=== PATIENT | female | born 1945 | race Caucasian/White ===

== ENCOUNTER 2017-04-24 21:41 | Observation (INO) | payer OTHER ==
[~2017-04-24] VITALS: Ht 160 cm; Wt 74.8 kg
[~2017-04-24 21:41] MED LIST: AMOX500T PO; ASPI81TA82 PO; CLON1 PO; FISH1000 PO; GREEPOW2 PO; MIRA1.5T3 PO; NORT25CA PO; OYST500T77 PO; SUPETAB30 PO; VITA400C28 PO; VITA400C70 PO
[2017-04-24 21:43] VITALS: BP 154/74; PULSE 88; RESP 16; TEMP 98.1; O2SAT 97
[2017-04-24 21:58] VITALS: BP 149/76; PULSE 79; RESP 16; O2SAT 98
[2017-04-24] MEDS ORDERED: OMEP20TA93 PO (22:05)
[2017-04-24] MEDS ORDERED: AMLO10TA2 PO (22:05)
[2017-04-24] MEDS ORDERED: TRIA1CAP6 PO (22:05)
[2017-04-24] MEDS ORDERED: NORT10CA PO (22:05)
[2017-04-24] MEDS ORDERED: ASPI-516 CHEW (22:05)
[2017-04-24] MEDS ORDERED: PRAM1TAB PO (22:05)
--- NOTE | 2017-04-24 22:38 | PD ---
HPI Chief Complaint: Abdominal Pain Time Seen by Provider: 22:34 Travel History International Travel<30 days: No Contact w/Intl Traveler<30days: No Traveled to known affect area: No History of Present Illness HPI The patient is a 71-year-old female that complains of pain in the bilateral lower quadrants, right greater than left since around 10 AM today. She does have nausea and vomiting without diarrhea. She denies any fever. There is no blood in the vomitus or stool. She has never had any abdominal surgery and still has her appendix and gallbladder. She denies any cough. She states the bumps in the road hurt her when she drove over here. She denies any dysuria, frequency or urgency or flank pain. Her pain level is a stabbing fullness have a type of pain, 8/10 in intensity. She has had a hysterectomy. PFSH Past Medical History Diminished Hearing: No Medical other: Yes (REFLUX, ARTHRITIS) ?: Not Past Surgical History Gynecologic Surgery: Yes (HYSTERECTOMY) Hysterectomy: Yes Oral Surgery: Yes (SINUS SX) Thoracic Surgery: Yes (BILAT. BREAST BX) Other Surgery: Yes Social History Alcohol Use: Yes (ON WEEKENDS) Tobacco Use: Yes (WEEKENDS) Substance Use: No Allergies-Medications (Allergen,Severity, Reaction): Coded Allergies: cortisone (Verified Allergy, Severe, HIVES, 04/24/17) Reported Meds & Prescriptions Reported Meds & Active Scripts Active Reported Aspirin 81 Mg Chew 81 Mg CHEW DAILY Nortriptyline (Nortriptyline HCl) 10 Mg Cap 10 Mg PO HS Pramipexole (Pramipexole Dihydrochloride) 1 Mg Tab 1 Mg PO DAILY Amlodipine (Amlodipine Besylate) 10 Mg Tab 10 Mg PO DAILY Omeprazole 20 Mg Tab 20 Mg PO DAILY Dyrenium (Triamterene) 50 Mg Cap 50 Mg PO DAILY Review of Systems Except as stated in HPI: all other systems reviewed are Neg Physical Exam Narrative GENERAL: The patient is alert, oriented 3 in moderate apparent distress with her bilateral lower quadrant pain. Her vital signs show blood pressure 149/76 but are otherwise normal. SKIN: Focused skin assessment warm/dry. HEAD: Atraumatic. Normocephalic. EYES: Pupils equal and round. No scleral icterus. No injection or drainage. ENT: No nasal bleeding or discharge. Mucous membranes pink and moist. NECK: Trachea midline. No JVD. CARDIOVASCULAR: Regular rate and rhythm. No murmur appreciated. RESPIRATORY: No accessory muscle use. Clear to auscultation. Breath sounds equal bilaterally. GASTROINTESTINAL: Abdomen soft, with tenderness to direct palpation in the bilateral lower quadrants, right side is more tender than the left., nondistended. Hepatic and splenic margins not palpable. Palpation of the left side produces some pain in the right side. No guarding or rebound is present. Alcaraz's sign is negative. MUSCULOSKELETAL: No obvious deformities. No clubbing. No cyanosis. No edema. NEUROLOGICAL: Awake and alert. No obvious cranial nerve deficits. Motor grossly within normal limits. Normal speech. PSYCHIATRIC: Appropriate mood and affect; insight and judgment normal. Data Data Last Documented VS Vital Signs Date Time Temp Pulse Resp B/P (MAP) Pulse Ox O2 Delivery O2 Flow Rate FiO2 04/24/17 23:50 82 18 122/74 (90) 99 Room Air 04/24/17 21:43 98.1 Orders Orders Complete Blood Count With Diff (04/24/17 22:25) Comprehensive Metabolic Panel (04/24/17 22:25) Urinalysis - C+S If Indicated (04/24/17 22:25) Ct Abd/Pel W Iv Contrast(Rout) (04/24/17 22:34) Lipase (04/24/17 22:25) Ns + Kcl 20 Meq Inj (Ns + Kcl 20 Meq Inj (04/24/17 23:30) Iohexol 350 Inj (Omnipaque 350 Inj) (04/24/17 23:42) Admit Order (Ed Use Only) (04/25/17 00:33) Piperacil-Tazo 3.375 Gm Premix (Zosyn 3. (04/25/17 00:45) Labs Laboratory Tests Test 04/24/17 22:25 White Blood Count 18.9 TH/MM3 Red Blood Count 5.09 MIL/MM3 Hemoglobin 14.6 GM/DL Hematocrit 43.2 % Mean Corpuscular Volume 84.9 FL Mean Corpuscular Hemoglobin 28.7 PG Mean Corpuscular Hemoglobin Concent 33.8 % Red Cell Distribution Width 13.2 % Platelet Count 249 TH/MM3 Mean Platelet Volume 8.8 FL Neutrophils (%) (Auto) 89.1 % Lymphocytes (%) (Auto) 7.1 % Monocytes (%) (Auto) 3.3 % Eosinophils (%) (Auto) 0.4 % Basophils (%) (Auto) 0.1 % Neutrophils # (Auto) 16.9 TH/MM3 Lymphocytes # (Auto) 1.3 TH/MM3 Monocytes # (Auto) 0.6 TH/MM3 Eosinophils # (Auto) 0.1 TH/MM3 Basophils # (Auto) 0.0 TH/MM3 CBC Comment DIFF FINAL Differential Comment Urine Color YELLOW Urine Turbidity CLEAR Urine pH 7.0 Urine Specific [place] 1.014 Urine Protein NEG mg/dL Urine Glucose (UA) NEG mg/dL Urine Ketones NEG mg/dL Urine Occult Blood SMALL Urine Nitrite NEG Urine Bilirubin NEG Urine Leukocyte Esterase NEG Urine RBC 4-9 /hpf Urine WBC 3-5 /hpf Urine Squamous Epithelial Cells 0-5 /hpf Urine Amorphous Sediment FEW Urine Mucus OCC /lpf Microscopic Urinalysis Comment CULT NOT INDICATED Blood Urea Nitrogen 11 MG/DL Creatinine 0.95 MG/DL Random Glucose 149 MG/DL Total Protein 8.5 GM/DL Albumin 4.1 GM/DL Calcium Level 8.9 MG/DL Alkaline Phosphatase 86 U/L Aspartate Amino Transf (AST/SGOT) 17 U/L Alanine Aminotransferase (ALT/SGPT) 33 U/L Total Bilirubin 0.5 MG/DL Sodium Level 132 MEQ/L Potassium Level 2.8 MEQ/L Chloride Level 95 MEQ/L Carbon Dioxide Level 27.2 MEQ/L Anion Gap 10 MEQ/L Estimat Glomerular Filtration Rate 58 ML/MIN Lipase 92 U/L MDM Medical Decision Making Medical Screen Exam Complete: Yes Emergency Medical Condition: Yes Medical Record Reviewed: Yes Interpretation(s) The CT abdomen/pelvis with IV contrast shows an uncomplicated acute appendicitis. There is a fecalith at the base. The appendix is in the retrocecal position. Incidentally noted are fatty liver and 3 mm nonobstructing left renal stone also noted is a small benign-appearing lipoma in the low pelvic cavity. The urine shows small occult blood with 4-9 red cells but is otherwise normal and culture is not indicated. The CBC shows a white count of 18,900 with 89% neutrophils but is otherwise unremarkable. The complete metabolic profile shows potassium of 2.8, GFR 58, glucose 149 but is otherwise normal. Differential Diagnosis Right sided diverticulitis, urinary tract infection, appendicitis, cholecystitis , urinary stone-unlikely Narrative Course The patient has an acute, uncomplicated appendicitis. The appendix is retrocecal. She will get Bora geronimo. Physician Communication Physician Communication I discussed the patient with Dr. Sierra. The patient will be admitted to him. Admitting Information Admitting Physician Requests: Observation Boni Alvarado MD Apr 24, 2017 22:38
[2017-04-24 22:40] LABS: AUTOMATED NEUTROPHIL # 16.9 TH/MM3 (1.8-7.7); BASOPHIL % 0.1 % (0.0-2.0); EOSINOPHIL # 0.1 TH/MM3 (0-0.4); EOSINOPHIL % 0.4 % (0.0-4.0); HEMATOCRIT 43.2 % (35.0-46.0); LYMPH % 7.1 % (9.0-44.0); LYMPHOCYTE # 1.3 TH/MM3 (1.0-4.8); MEAN CELL VOLUME 84.9 FL (80.0-100.0); MEAN CORPUSCULAR HEMOGLOBIN 28.7 PG (27.0-34.0); MEAN CORPUSCULAR HGB CONC 33.8 % (32.0-36.0); MONO % 3.3 % (0.0-8.0); NEUT % 89.1 % (16.0-70.0); PLATELET COUNT 249 TH/MM3 (150-450); RED BLOOD COUNT 5.09 MIL/MM3 (4.00-5.30); RED CELL DISTRIBUTION WIDTH 13.2 % (11.6-17.2); WHITE BLOOD COUNT 18.9 TH/MM3 (4.0-11.0)
[2017-04-24 22:41] LABS: BLOOD, URINE SMALL (NEG); GLUCOSE,URINE NEG (NEG); KETONE, URINE NEG (NEG); NITRITE,URINE NEG (NEG)
[2017-04-24 22:46] LABS: HEMO FLAGS DIFF FINAL
[2017-04-24 22:48] LABS: URINE COLOR YELLOW (YELLW/STRAW)
[2017-04-24 22:49] LABS: MUCUS URINE OCC /lpf (OCC); SQUAMOUS EPITHELIAL CELL URINE 0-5 /hpf (0-5)
[2017-04-24 22:51] LABS: COMMENT (UR) CULT NOT INDICATED; CULTURE IF INDICATED CULT NOT INDICATED
[2017-04-24 23:08] LABS: ALKALINE PHOSPHATASE 86 U/L (45-117); ALT (GPT) 33 U/L (10-53); ANION GAP 10 MEQ/L (5-15); AST (GOT) 17 U/L (15-37); BICARBONATE 27.2 MEQ/L (21.0-32.0); BLOOD UREA NITROGEN 11 MG/DL (7-18); CHLORIDE 95 MEQ/L (98-107); GLOMERULAR FILTRATION RATE 58 ML/MIN (>89); POTASSIUM 2.8 MEQ/L (3.5-5.1); SODIUM (NA) 132 MEQ/L (136-145); TOTAL BILIRUBIN ADULT 0.5 MG/DL (0.2-1.0)
[2017-04-24] MEDS: NS + KCL 20 MEQ INJ 1,000 ML IV SCH (23:34)
[2017-04-24] MEDS ORDERED: IOHEXOL 350 MG/ML 10 ML VIAL (for RAD DIAG) IVCONTRAST ONE (23:42)
[2017-04-24 23:50] VITALS: BP 122/74; PULSE 82; RESP 18; O2SAT 99
--- NOTE | 2017-04-25 00:02 | RADRPT ---
EXAM DATE/TIME: 04/24/2017 23:36 [facility] COMPARISON: No previous studies available for comparison. INDICATIONS : Evaluate for appendicitis. Right lower quadrant pain. IV CONTRAST: 100 cc Omnipaque 350 (iohexol) IV ORAL CONTRAST: No oral contrast ingested. RADIATION DOSE: 10.49 CTDIvol (mGy) MEDICAL HISTORY : None SURGICAL HISTORY : Hysterectomy. ENCOUNTER: Initial ACUITY: 1 day PAIN SCALE: 8/10 LOCATION: Right lower quadrant TECHNIQUE: Volumetric scanning of the abdomen and pelvis was performed. Using automated exposure control and ad justment of the mA and/or kV according to patient size, radiation dose was kept as low as reasonably achievable to obtain optimal diagnostic quality images. DICOM format image data is available electro nically for review and comparison. FINDINGS: LOWER LUNGS: The visualized lower lungs are clear. LIVER: Homogeneous fatty density without lesion. There is no dilation of the biliary tree. No calcified ga llstones. SPLEEN: Normal size without lesion. PANCREAS: Within normal limits. KIDNEYS: 3 mm nonobstructing stone of the left lower pole. Mild patchy cortical thinning/scarring of both kidn eys. ADRENAL GLANDS: Within normal limits. VASCULAR: There is no aortic aneurysm. BOWEL/MESENTERY: Distended, indurated appendix with periappendiceal edema noted compatible with acute appendicitis. Th ere is a 6 mm fecalith at the base. No abscess, perforation or obstruction. The appendix is retroceca l in location. ABDOMINAL WALL: Within normal limits. RETROPERITONEUM: There is no lymphadenopathy. BLADDER: No wall thickening or mass. REPRODUCTIVE: Previous hysterectomy. 15 mm simple appearing fatty mass seen anterior to the left side of the vagina at the level of the bladder base. INGUINAL: There is no lymphadenopathy or hernia. MUSCULOSKELETAL: No acute bony abnormality demonstrated. CONCLUSION: 1. Uncomplicated acute appendicitis. Fecalith at the base. Appendix is retrocecal in location. 2. Fatty liver. 3. 3 mm nonobstructing left renal stone. Mild patchy cortical thinning/scarring on both sides. 4. Small, benign-appearing lipoma in the low pelvic cavity as above. Ghulam White MD on April 24, 2017 at 23:56 Board Certified Radiologist. This report was verified electronically.
[2017-04-25] MEDS ORDERED: PIPERACIL-TAZO 3.375 GM PREMIX 50 ML IV ONE (00:45)
[2017-04-25] MEDS ORDERED: SODIUM CHLOR 0.9% 1000 ML INJ 1,000 ML IV SCH (00:56)
[2017-04-25] MEDS ORDERED: MORPHINE SULFATE 4 MG/ML INJ IV PUSH ONE (01:00)
[2017-04-25] MEDS ORDERED: ONDANSETRON HCL 4 MG/2 ML VIAL IVP ONE (01:00)
[2017-04-25 02:22] VITALS: BP 116/63; PULSE 70; RESP 20; TEMP 97.8; O2SAT 93
[2017-04-25] MEDS: MORPHINE SULFATE 4 MG/ML INJ IV PUSH PRN ×2 (05:41→08:16)
[2017-04-25 07:50] VITALS: BP 110/59; PULSE 67; RESP 20; TEMP 98; O2SAT 90
[2017-04-25] MEDS: NS + KCL 20 MEQ INJ 1,000 ML IV SCH ×2 (08:09→16:25)
--- NOTE | 2017-04-25 09:02 | PD.CONS ---
cc: Rojelio Edgar MD HPI Service General Surgery Reason for Consult Acute Appendicitis Primary Care Physician Ba Baltazar MD History of Present Illness This is a 71-year-old female with a past medical history of arthritis, reflux, migraines, restless leg syndrome and hypertension. The patient developed right lower abdominal pain at approximately 10 AM yesterday. She rates the pain 8 out of 10 intensity; stabbing-type pain. She has assisted nausea vomiting. She denies any fevers or chills. She denies any diarrhea. A CT abdomen and pelvis was obtained which shows on complicated acute appendicitis. The patient has an elevated white blood cell count. An admission to General Surgery service has been requested for laparoscopic appendectomy. Review of Systems Constitutional: DENIES: Fever, Chills, Change in appetite Endocrine: DENIES: Polydipsia, Polyuria, Polyphagia Eyes: DENIES: Diplopia Ears, nose, mouth, throat: DENIES: Hearing loss Respiratory: DENIES: Cough Cardiovascular: DENIES: Palpitations Gastrointestinal: COMPLAINS OF: Abdominal pain, Nausea, Vomiting, DENIES: Diarrhea Genitourinary: DENIES: Urinary frequency Musculoskeletal: DENIES: Joint pain Integumentary: DENIES: Abnormal pigmentation Hematologic/lymphatic: DENIES: Bruising Immunologic/allergic: DENIES: Eczema Neurologic: DENIES: Abnormal gait, Headache Psychiatric: DENIES: Mood changes, Depression, Hallucinations Past Family Social History Past Medical History Arthritis Reflux Migraines Restless leg syndrome Hypertension Past Surgical History Vaginal hysterectomy Sinus surgery Bilateral breast biopsy--- benign Allergies: Coded Allergies: cortisone (Verified Allergy, Severe, HIVES, 04/24/17) Active Ordered Medications Current Medications Medications (Trade) Dose Ordered Sig/Jimmie Route Start Time Stop Time Status Last Admin Potassium Chloride/Sodium Chloride 1,000 ml @ 125 mls/hr Q8H IV 04/24/17 23:30 04/25/17 08:09 (Morphine Inj) 4 mg Q2H PRN IV PUSH 04/25/17 05:30 04/25/17 08:16 Family History Noncontributory Social History Denies tobacco use Positive EtOH use--occasional; social Denies illicit drug use Patient is retired. Physical Exam Vital Signs Vital Signs Date Time Temp Pulse Resp B/P (MAP) Pulse Ox O2 Delivery O2 Flow Rate FiO2 04/25/17 02:22 97.8 70 20 116/63 (80) 93 04/24/17 23:50 82 18 122/74 (90) 99 Room Air 04/24/17 21:58 79 16 149/76 (100) 98 Room Air 04/24/17 21:43 98.1 88 16 154/74 (100) 97 Physical Exam GENERAL: 71-year-old female resting in bed in no acute distress. SKIN: Warm and dry. HEAD: Atraumatic. Normocephalic. EYES: Pupils equal and round. No scleral icterus. No injection or drainage. ENT: No nasal bleeding or discharge. Mucous membranes pink and moist. NECK: Trachea midline. CARDIOVASCULAR: Regular rate and rhythm. RESPIRATORY: No accessory muscle use. Clear to auscultation. Breath sounds equal bilaterally. GASTROINTESTINAL: Abdomen soft, nondistended. Tender in RLQ with palpation. No visible scars or hernias. Abrasion just inferior to umbilicus. MUSCULOSKELETAL: Extremities without clubbing, cyanosis, or edema. No obvious deformities. NEUROLOGICAL: Awake and alert. No obvious cranial nerve deficits. Motor grossly within normal limits. Five out of 5 muscle strength in the arms and legs. Normal speech. PSYCHIATRIC: Appropriate mood and affect; insight and judgment normal. Laboratory Laboratory Tests Test 04/24/17 22:25 White Blood Count 18.9 Red Blood Count 5.09 Hemoglobin 14.6 Hematocrit 43.2 Mean Corpuscular Volume 84.9 Mean Corpuscular Hemoglobin 28.7 Mean Corpuscular Hemoglobin Concent 33.8 Red Cell Distribution Width 13.2 Platelet Count 249 Mean Platelet Volume 8.8 Neutrophils (%) (Auto) 89.1 Lymphocytes (%) (Auto) 7.1 Monocytes (%) (Auto) 3.3 Eosinophils (%) (Auto) 0.4 Basophils (%) (Auto) 0.1 Neutrophils # (Auto) 16.9 Lymphocytes # (Auto) 1.3 Monocytes # (Auto) 0.6 Eosinophils # (Auto) 0.1 Basophils # (Auto) 0.0 CBC Comment DIFF FINAL Differential Comment Urine Color YELLOW Urine Turbidity CLEAR Urine pH 7.0 Urine Specific [place] 1.014 Urine Protein NEG Urine Glucose (UA) NEG Urine Ketones NEG Urine Occult Blood SMALL Urine Nitrite NEG Urine Bilirubin NEG Urine Leukocyte Esterase NEG Urine RBC 4-9 Urine WBC 3-5 Urine Squamous Epithelial Cells 0-5 Urine Amorphous Sediment FEW Urine Mucus OCC Microscopic Urinalysis Comment CULT NOT INDICATED Blood Urea Nitrogen 11 Creatinine 0.95 Random Glucose 149 Total Protein 8.5 Albumin 4.1 Calcium Level 8.9 Alkaline Phosphatase 86 Aspartate Amino Transf (AST/SGOT) 17 Alanine Aminotransferase (ALT/SGPT) 33 Total Bilirubin 0.5 Sodium Level 132 Potassium Level 2.8 Chloride Level 95 Carbon Dioxide Level 27.2 Anion Gap 10 Estimat Glomerular Filtration Rate 58 Lipase 92 Result Diagram: 04/24/17222404/24/172224 Imaging Last 48 hours Impressions Abdomen/Pelvis CT 04/24/172233 Signed Impressions: Service Date/Time: Monday, April 24, 2017 23:36 - CONCLUSION: 1. Uncomplicated acute appendicitis. Fecalith at the base. Appendix is retrocecal in location. 2. Fatty liver. 3. 3 mm nonobstructing left renal stone. Mild patchy cortical thinning/scarring on both sides. 4. Small, benign-appearing lipoma in the low pelvic cavity as above. Ghulam White MD Assessment and Plan Assessment and Plan 71-year-old female with acute appendicitis -Plan for OR today for laparoscopic appendectomy -Obtain consents -NPO -IVF -Zosyn Discussed Condition With Dr. Edgar Mrs. Morataya + (at bedside) + Urszula (daughter--on phone) Heather Peters Apr 25, 2017 09:02
--- NOTE | 2017-04-25 09:09 | HHI.HP ---
cc: Shayla Mcnamara MD [facility] Service General Surgery Primary Care Physician Ba Baltazar MD Admission Diagnosis acute appendicitis Chief Complaint: Abdominal pain History of Present Illness This is a 71-year-old female with a past medical history of arthritis, reflux, migraines, restless leg syndrome and hypertension. The patient developed right lower abdominal pain at approximately 10 AM yesterday. She rates the pain 8 out of 10 intensity; stabbing-type pain. She has associated nausea and vomiting. She denies any fevers or chills. She denies any diarrhea. A CT abdomen and pelvis was obtained which shows acute appendicitis. The patient has an elevated white blood cell count. An admission to General Surgery service has been requested for laparoscopic appendectomy. Review of Systems Constitutional: DENIES: Fatigue, Weight loss Endocrine: DENIES: Polydipsia, Polyuria, Polyphagia Eyes: DENIES: Diplopia Ears, nose, mouth, throat: DENIES: Hearing loss Respiratory: DENIES: Cough, Shortness of breath Cardiovascular: DENIES: Chest pain Gastrointestinal: COMPLAINS OF: Abdominal pain, Nausea, Vomiting, DENIES: Diarrhea Genitourinary: DENIES: Urinary frequency Musculoskeletal: DENIES: Joint pain Integumentary: DENIES: Abnormal pigmentation Hematologic/lymphatic: DENIES: Bruising Immunologic/allergic: DENIES: Eczema Neurologic: DENIES: Abnormal gait, Headache Psychiatric: DENIES: Mood changes Past Family Social History Past Medical History Arthritis Reflux Migraines Restless leg syndrome Hypertension Past Surgical History Vaginal hysterectomy Sinus surgery Bilateral breast biopsy--- benign Reported Medications Amlodipine Aspirin Nortriptyline Pramipexole Triamterene Omeprazole Allergies: Coded Allergies: cortisone (Verified Allergy, Severe, HIVES, 04/24/17) Active Ordered Medications Current Medications Medications (Trade) Dose Ordered Sig/Jimmie Route Start Time Stop Time Status Last Admin Potassium Chloride/Sodium Chloride 1,000 ml @ 125 mls/hr Q8H IV 04/24/17 23:30 04/25/17 08:09 (Morphine Inj) 4 mg Q2H PRN IV PUSH 04/25/17 05:30 04/25/17 08:16 Family History Noncontributory Social History Denies tobacco use Positive EtOH use--occasional; social Denies illicit drug use Patient is retired. Physical Exam Vital Signs Vital Signs Date Time Temp Pulse Resp B/P (MAP) Pulse Ox O2 Delivery O2 Flow Rate FiO2 04/25/17 02:22 97.8 70 20 116/63 (80) 93 04/24/17 23:50 82 18 122/74 (90) 99 Room Air 04/24/17 21:58 79 16 149/76 (100) 98 Room Air 04/24/17 21:43 98.1 88 16 154/74 (100) 97 Physical Exam GENERAL: 71-year-old female resting in bed in no acute distress. SKIN: Warm and dry. HEAD: Atraumatic. Normocephalic. EYES: Pupils equal and round. No scleral icterus. No injection or drainage. ENT: No nasal bleeding or discharge. Mucous membranes pink and moist. NECK: Trachea midline. CARDIOVASCULAR: Regular rate and rhythm. RESPIRATORY: No accessory muscle use. Clear to auscultation. Breath sounds equal bilaterally. GASTROINTESTINAL: Abdomen soft, nondistended. Tender in RLQ with palpation. No visible scars or hernias. Abrasion just inferior to umbilicus. MUSCULOSKELETAL: Extremities without clubbing, cyanosis, or edema. No obvious deformities. NEUROLOGICAL: Awake and alert. No obvious cranial nerve deficits. Motor grossly within normal limits. Five out of 5 muscle strength in the arms and legs. Normal speech. PSYCHIATRIC: Appropriate mood and affect; insight and judgment normal. Laboratory Laboratory Tests Test 04/24/17 22:25 White Blood Count 18.9 Red Blood Count 5.09 Hemoglobin 14.6 Hematocrit 43.2 Mean Corpuscular Volume 84.9 Mean Corpuscular Hemoglobin 28.7 Mean Corpuscular Hemoglobin Concent 33.8 Red Cell Distribution Width 13.2 Platelet Count 249 Mean Platelet Volume 8.8 Neutrophils (%) (Auto) 89.1 Lymphocytes (%) (Auto) 7.1 Monocytes (%) (Auto) 3.3 Eosinophils (%) (Auto) 0.4 Basophils (%) (Auto) 0.1 Neutrophils # (Auto) 16.9 Lymphocytes # (Auto) 1.3 Monocytes # (Auto) 0.6 Eosinophils # (Auto) 0.1 Basophils # (Auto) 0.0 CBC Comment DIFF FINAL Differential Comment Urine Color YELLOW Urine Turbidity CLEAR Urine pH 7.0 Urine Specific [place] 1.014 Urine Protein NEG Urine Glucose (UA) NEG Urine Ketones NEG Urine Occult Blood SMALL Urine Nitrite NEG Urine Bilirubin NEG Urine Leukocyte Esterase NEG Urine RBC 4-9 Urine WBC 3-5 Urine Squamous Epithelial Cells 0-5 Urine Amorphous Sediment FEW Urine Mucus OCC Microscopic Urinalysis Comment CULT NOT INDICATED Blood Urea Nitrogen 11 Creatinine 0.95 Random Glucose 149 Total Protein 8.5 Albumin 4.1 Calcium Level 8.9 Alkaline Phosphatase 86 Aspartate Amino Transf (AST/SGOT) 17 Alanine Aminotransferase (ALT/SGPT) 33 Total Bilirubin 0.5 Sodium Level 132 Potassium Level 2.8 Chloride Level 95 Carbon Dioxide Level 27.2 Anion Gap 10 Estimat Glomerular Filtration Rate 58 Lipase 92 Result Diagram: 04/24/17222404/24/172224 Imaging Last 48 hours Impressions Abdomen/Pelvis CT 04/24/172233 Signed Impressions: Service Date/Time: Monday, April 24, 2017 23:36 - CONCLUSION: 1. Uncomplicated acute appendicitis. Fecalith at the base. Appendix is retrocecal in location. 2. Fatty liver. 3. 3 mm nonobstructing left renal stone. Mild patchy cortical thinning/scarring on both sides. 4. Small, benign-appearing lipoma in the low pelvic cavity as above. Ghulam White MD Caprini VTE Risk Assessment Caprini VTE Risk Assessment: Mod/High Risk (score >= 2) VTE Pharm Contraindication: going to OR today Caprini Risk Assessment Model Point Value = 1 Point Value = 2 Point Value = 3 Point Value = 5 Age 41-60 Minor surgery BMI > 25 kg/m2 Swollen legs Varicose veins or History of unexplained or recurrent spontaneous Oral contraceptives or hormone replacement Sepsis (< 1 month) Serious lung disease, including pneumonia (< 1 month) Abnormal pulmonary function Acute myocardial infarction Congestive heart failure (< 1 month) History of inflammatory bowel disease Medical patient at bed rest Age 61-74 Arthroscopic surgery Major open surgery (> 45 min) Laparoscopic surgery (> 45 min) Malignancy Confined to bed (> 72 hours) Immobilizing plaster cast Central venous access Age >= 75 History of VTE Family history of VTE Factor V Leiden Prothrombin [id number] Lupus anticoagulant Anticardiolipin antibodies Elevated serum homocysteine Heparin-induced thrombocytopenia Other congenital or acquired thrombophilia Stroke (< 1 month) Elective arthroplasty Hip, pelvis, or leg fracture Acute spinal cord injury (< 1 month) Prophylaxis Regimen Total Risk Factor Score Risk Level Prophylaxis Regimen 0-1 Low Early ambulation 2 Moderate Order ONE of the following: *Sequential Compression Device (SCD) *Heparin 5000 units SQ BID 3-4 Higher Order ONE of the following medications: *Heparin 5000 units SQ TID *Enoxaparin/Lovenox 40 mg SQ daily (WT < 150 kg, CrCl > 30 mL/min) *Enoxaparin/Lovenox 30 mg SQ daily (WT < 150 kg, CrCl > 10-29 mL/min) *Enoxaparin/Lovenox 30 mg SQ BID (WT < 150 kg, CrCl > 30 mL/min) AND/OR *Sequential Compression Device (SCD) 5 or more Highest Order ONE of the following medications: *Heparin 5000 units SQ TID (Preferred with Epidurals) *Enoxaparin/Lovenox 40 mg SQ daily (WT < 150 kg, CrCl > 30 mL/min) *Enoxaparin/Lovenox 30 mg SQ daily (WT < 150 kg, CrCl > 10-29 mL/min) *Enoxaparin/Lovenox 30 mg SQ BID (WT < 150 kg, CrCl > 30 mL/min) AND *Sequential Compression Device (SCD) Assessment and Plan Assessment and Plan 71-year-old female with acute appendicitis -Plan for OR today for laparoscopic appendectomy -Obtain consents -NPO -IVF -Replace K; recheck in AM -Zosyn Patient seen and examined, chart reviewed. Recommend immediate appendectomy. Patient and agree. OR notified, will send for patient. SHAYLA MCNAMARA MD FACS Discussed Condition With Dr. Mcnamara Mrs. Morataya + (at bedside) + Urszula (daughter--on phone) Heather Peters Apr 25, 2017 09:09 Shayla Mcnamara MD Apr 26, 2017 08:02
[2017-04-25] MEDS ORDERED: SODIUM CHLORIDE 0.9% FLUSH 10 ML FLUSH IV FLUSH PRN (09:15)
[2017-04-25] MEDS ORDERED: ONDANSETRON HCL 4 MG/2 ML VIAL IV PUSH PRN (09:15)
[2017-04-25] MEDS: PIPERACIL-TAZO 3.375 GM PREMIX 50 ML IV SCH ×2 (10:00→17:57)
[2017-04-25] MEDS ORDERED: BUPIVACAINE/EPINEPHRINE 0.25% PF 30 ML VIAL ONE ×2 (10:05→10:54)
[2017-04-25] MEDS ORDERED: FAMOTIDINE 20 MG/2 ML VIAL ONE (10:10)
[2017-04-25] MEDS ORDERED: MIDAZOLAM HCL 2 MG/2 ML VIAL ONE (10:10)
[2017-04-25] MEDS ORDERED: LACTATED RINGER'S 1000 ML INJ 1,000 ML ONE (10:57)
[2017-04-25] MEDS ORDERED: PROPOFOL 200 MG/20 ML AMP IV ONE (12:00)
[2017-04-25] MEDS ORDERED: NALOXONE HCL 0.4 MG/ML AMP ONE (12:02)
[2017-04-25] MEDS ORDERED: FLUMAZENIL 1 MG/10 ML VIAL ONE (12:02)
[2017-04-25 12:11] VITALS: PULSE 88
--- NOTE | 2017-04-25 12:42 | MP ---
cc: SHAYLA MCNAMARA M.D. DATE OF SURGERY 04/25/2017 PREOPERATIVE DIAGNOSIS Acute appendicitis POSTOPERATIVE DIAGNOSIS 1. Acute appendicitis 2. Gangrenous retrocecal appendicitis PROCEDURE PERFORMED Laparoscopic appendectomy SURGEON Shayla Mcnamara MD ANESTHESIA General endotracheal COMPLICATIONS None INDICATIONS FOR PROCEDURE Ms. Morataya is a very pleasant 71-year-old female who presented to [facility] late last night with complaints of right lower quadrant abdominal pain. She was seen and evaluated by the ER doctor. Consultation was made with Dr. Sierra and plans were made for an appendectomy this morning. Dr. Sierra is unavailable and he asked me if I could come down and see the patient. I came down to see the patient and discussed the case with her and her at the bedside. They are agreeable to me doing the surgery. Operating room was notified and she was taken to the operating room. INTRAOPERATIVE FINDINGS The patient had a gangrenous retrocecal appendix. The appendix came out basically in piecemeal as it was completely gangrenous. We were able to identify the cecal base and the Endoloops were placed on the appendiceal stump at the cecal base. All pieces were removed and placed into an Endopouch bag. DETAILS The patient was identified, brought to the operating room, placed supine on the operating table. After adequate general anesthesia was achieved, the abdomen was prepped and draped in the standard surgical fashion. The supraumbilical space anesthetized with quarter percent Marcaine. A supraumbilical incision was made. Dissection was carried down through the subcutaneous tissue to the midline fascia. The midline fascia was then incised sharply. A finger was then placed in the peritoneal cavity without difficulty. Next, the abdominal cavity was insufflated to 15 mmHg using CO2 gas. Next, two lower midline trocars were placed under direct vision after anesthetizing the skin and subcutaneous tissue with quarter percent Marcaine. Both trocars were placed under direct vision. Attention was directed to the right lower quadrant. The right lower quadrant, the cecum was identified. The cecum was gently rotated medially and a small amount of old bloody fluid was noted likely indicating a contained perforation. This was immediately suctioned and irrigated out. The appendix was clearly seen and was found be could completely gangrenous. The appendix was in a lateral retrocecal position. Using blunt and hydrodissection, the appendix was brought up. The appendix was gangrenous and every time I grabbed it, it basically fell apart. The mesentery of the appendix was taken down with harmonic scalpel. We were able to identify the cecal base. At the cecal base, two 2-0 PDS Endoloops were placed on the base of the appendix at the cecum. The distal appendix was then transected. An Endopouch bag was introduced into the abdominal cavity and all pieces of the appendix were placed into the Endopouch bag and were retrieved. These were removed and sent to pathology for analysis. Next, the abdominal cavity was irrigated out with one liter of warm saline solution. The cecal base was carefully inspected and the appendiceal stump inspected. No evidence of leakage and no evidence of bleeding. All irrigant was noted to be clear. The cecum was returned to its anatomic position in the right lower quadrant. The omentum was placed over the base of the cecum in the appendiceal stump. Abdominal irrigant was then removed. All trocars were then removed under direct vision and the abdomen desufflated. The midline fascia was repaired with 0 Vicryl in [id number] fashion. Skin was closed with 4-0 Vicryl. Patient tolerated the procedure well, was awakened and brought to recovery in stable condition. MD RADHA Renteria/JOHAN /12:26 PM /12:33 PM
[2017-04-25] MEDS ORDERED: ACETAMINOPHEN/HYDROcodone 325 MG/5 MG TAB PO PRN (13:15)
[2017-04-25] MEDS: POTASSIUM CHLOR 20 MEQ PREMIX 100 ML IV SCH ×2 (13:36→16:28)
[2017-04-25 15:50] VITALS: BP 114/63; PULSE 74; RESP 20; TEMP 98.5; O2SAT 91
[2017-04-25] MEDS ORDERED: PRAMIPEXOLE DIHYDROCHLORIDE 1 MG TAB PO SCH (16:45)
[2017-04-25] MEDS ORDERED: PANTOPRAZOLE SOD 20 MG DELAYED RELEASE TAB PO SCH (17:00)
[2017-04-25] MEDS ORDERED: POTASSIUM CHLORIDE 10 MEQ CONTROLLED RELEASE TAB PO ONE (17:15)
[2017-04-25 20:00] VITALS: BP 93/50; PULSE 75; RESP 20; TEMP 98.5; O2SAT 92
[2017-04-25] MEDS ORDERED: NORTRIPTYLINE HCL 10 MG CAP PO SCH (21:00)
[2017-04-25] MEDS ORDERED: SODIUM CHLORIDE 0.9% FLUSH 10 ML FLUSH IV FLUSH SCH (21:00)
[2017-04-25] MEDS: KETOROLAC TROMETHAMINE 30 MG/ML (IVP) VIAL IV PUSH PRN (21:20)
[2017-04-26] VITALS: BP 101/56; PULSE 70; RESP 18; TEMP 97.1; O2SAT 90
[2017-04-26] MEDS: PIPERACIL-TAZO 3.375 GM PREMIX 50 ML IV SCH (01:40)
[2017-04-26] MEDS: NS + KCL 20 MEQ INJ 1,000 ML IV SCH (01:40)
[2017-04-26] MEDS: KETOROLAC TROMETHAMINE 30 MG/ML (IVP) VIAL IV PUSH PRN (03:57)
[2017-04-26 04:57] VITALS: RESP 18
[2017-04-26 08:18] LABS: BICARBONATE 22.6 MEQ/L (21.0-32.0); POTASSIUM 4.3 MEQ/L (3.5-5.1)
[2017-04-26] MEDS ORDERED: TRIAMTERENE 50 MG PO SCH (09:00)
[2017-04-26] MEDS ORDERED: PANTOPRAZOLE SODIUM 40 MG VIAL IV PUSH SCH (09:00)
--- NOTE | 2017-04-27 08:42 | EKG ---
Date Performed: 04/25/2017 Time Performed: 10:22:38 PTAGE: 71 years EKG: Sinus rhythm NORMAL ECG PREVIOUS TRACING : 11/24/2010 12.51 DOCTOR: Fercho Crocker Interpretating Date/Time 04/27/2017 08:42:02
== END 2017-04-26 09:02 | disposition home or self-care (01) ==
LOC: PHED 21:41 → PHEDA 04-25 00:40 → PH3A 04-25 01:59
PROVIDERS: ADMIT Surgery; ATTEND Surgery
DX: K35.80 Unspecified acute appendicitis (principal); I96 Gangrene, not elsewhere classified; K56.41 Fecal impaction; K76.0 Fatty (change of) liver, not elsewhere classified; N20.0 Calculus of kidney; D17.1 Benign lipomatous neoplasm of skin and subcutaneous tissue of trunk; I10 Essential (primary) hypertension; G25.81 Restless legs syndrome; K21.9 Gastro-esophageal reflux disease without esophagitis; M19.90 Unspecified osteoarthritis, unspecified site; Z79.899 Other long term (current) drug therapy; Z79.82 Long term (current) use of aspirin
CPT/HCPCS: 00840; 44970; 74177; 80048; 80053; 81001; 83690; 85025; 88304; 93005; 96361; 96365; 96366; 96367; 96368; 96375; 96376; 99285; G0378; J1885; J2250; J2270; J2310; J2405; J2543; J3010; J3480; J7120; Q9967

== ENCOUNTER 2017-07-25 06:16 | Emergency (ER) | payer OTHER ==
[~2017-07-25] VITALS: Ht 160 cm; Wt 68.9 kg
[~2017-07-25 06:16] MED LIST changes: +AMLO10TA2 PO; -AMOX500T PO; +ASPI-516 CHEW; -ASPI81TA82 PO; -CLON1 PO; -FISH1000 PO; -GREEPOW2 PO; -MIRA1.5T3 PO; +NORT10CA PO; -NORT25CA PO; +OMEP20TA93 PO; -OYST500T77 PO; +PRAM1TAB PO; -SUPETAB30 PO; +TRIA1CAP6 PO; -VITA400C28 PO; -VITA400C70 PO
[2017-07-25 06:21] VITALS: BP 132/63; PULSE 75; RESP 18; TEMP 97.9; O2SAT 97
[2017-07-25] MEDS ORDERED: TRAZ100T10 PO (06:39)
[2017-07-25] MEDS ORDERED: POTA-163 PO (06:39)
[2017-07-25] MEDS ORDERED: BACT800T5 PO (06:45)
--- NOTE | 2017-07-25 06:46 | PD ---
HPI Chief Complaint: Complaint Time Seen by Provider: 06:28 Travel History International Travel<30 days: No Contact w/Intl Traveler<30days: No Traveled to known affect area: No History of Present Illness HPI The patient is a 72-year-old female who presents to the emergency department for hematuria and discomfort with urination. She also complains of frequency and urgency. The patient recently had an ultrasound of her bladder which revealed a possible mass, she was seen by the urologist Dr. Bolton, and is scheduled undergo cystoscopy this . The patient states her symptoms started this morning. She does complain of hematuria, dysuria, frequency, and urgency. She denies any back pain, suprapubic discomfort, nausea, or vomiting. She does have a history of a kidney stone in one of her kidneys, but denies passing kidney stones in the past. Symptoms are mild, there are no current alleviating or exacerbating factors. PFSH Past Medical History Autoimmune Disease: No Anxiety: Yes Cancer: No Diminished Hearing: No Endocrine: No GERD: Yes Genitourinary: No Immune Disorder: No Musculoskeletal: No Reproductive: No Respiratory: No Migraines: Yes ?: Not Past Surgical History Gynecologic Surgery: Yes (HYSTERECTOMY) Hysterectomy: Yes Oral Surgery: Yes (SINUS SX) Thoracic Surgery: Yes (BILAT. BREAST BX) Other Surgery: Yes Social History Alcohol Use: Yes (ON WEEKENDS) Tobacco Use: Yes (WEEKENDS) Substance Use: No Allergies-Medications (Allergen,Severity, Reaction): Coded Allergies: cortisone (Verified Allergy, Severe, HIVES, 07/25/17) Reported Meds & Prescriptions Reported Meds & Active Scripts Active Reported Aspirin 81 Mg Chew 81 Mg CHEW DAILY Pramipexole (Pramipexole Dihydrochloride) 1 Mg Tab 1 Mg PO DAILY Amlodipine (Amlodipine Besylate) 10 Mg Tab 10 Mg PO DAILY Omeprazole 20 Mg Tab 20 Mg PO DAILY Dyrenium (Triamterene) 50 Mg Cap 50 Mg PO DAILY Review of Systems Except as stated in HPI: all other systems reviewed are Neg General / Constitutional: No: Fever Gastrointestinal: No: Nausea, Vomiting Genitourinary: Positive: Urgency, Frequency, Dysuria, Hematuria, No: Pelvic Pain Musculoskeletal: No: Pain (denies back pain) Physical Exam Narrative GENERAL: Awake, alert, nontoxic-appearing 9 year-old female who appears her stated age and is in no acute respiratory distress. SKIN: Focused skin assessment warm/dry. HEAD: Atraumatic. Normocephalic. CARDIOVASCULAR: Regular rate and rhythm. No murmur appreciated. RESPIRATORY: No accessory muscle use. Clear to auscultation. Breath sounds equal bilaterally. GASTROINTESTINAL: Abdomen soft, non-tender, nondistended. No suprapubic tenderness. Back: No CVA tenderness. MUSCULOSKELETAL: No obvious deformities. No clubbing. No cyanosis. No edema. NEUROLOGICAL: Awake and alert. No obvious cranial nerve deficits. Motor grossly within normal limits. Normal speech. PSYCHIATRIC: Appropriate mood and affect; insight and judgment normal. Data Data Last Documented VS Vital Signs Date Time Temp Pulse Resp B/P (MAP) Pulse Ox O2 Delivery O2 Flow Rate FiO2 07/25/17 06:21 97.9 75 18 132/63 (86) 97 Orders Orders Urinalysis - C+S If Indicated (07/25/17 06:38) [facility] Medical Decision Making Medical Screen Exam Complete: Yes Emergency Medical Condition: Yes Medical Record Reviewed: Yes Differential Diagnosis Differential diagnosis includes hemorrhagic cystitis, UTI, nephrolithiasis, bladder cancer, coagulopathy. Narrative Course A UA was sent to lab. The patient's possibilities include hemorrhagic cystitis , UTI, nephrolithiasis, and bladder cancer. The patient is scheduled to undergo cystoscopy on by her urologist, Dr. Bolton, for an abnormal ultrasound. If the patient's UA does reveal WBCs and RBCs, the patient will be treated with Bactrim for possible hemorrhagic cystitis. I will hold Pyridium so there is no possible interference with a cystoscopy. Diagnosis Primary Impression: Hemorrhagic cystitis Patient Instructions: General Instructions Additional Instructions: Medication as directed. Follow-up with your urologist for cystoscopy on as planned. Return if symptoms worsen or progress. Please provide the patient a copy of her UA results at discharge. Med/Other Pt SpecificInfo: Prescription(s) given Scripts Sulfamethoxazole-Trimethoprim (Bactrim DS) 800-160 Mg Tab 1 TAB PO BID for Infection, #14 TAB 0 Refills Prov: Checo Darby MD 07/25/17 Disposition: DISCHARGE HOME Condition: Stable Checo Darby MD Jul 25, 2017 06:46
[2017-07-25 06:55] LABS: BLOOD, URINE LARGE (NEG); GLUCOSE,URINE NEG (NEG); KETONE, URINE TRACE mg/dL (NEG); NITRITE,URINE POS (NEG); URINE LEUKOCYTE ESTERASE LARGE (NEG)
[2017-07-25 07:01] LABS: BILIRUBIN, URINE NEG (NEG)
[2017-07-25 07:02] LABS: URINE COLOR RED (YELLW/STRAW)
[2017-07-25 07:04] LABS: RBC, URINE INNUM /hpf (0-3)
[2017-07-25 07:05] LABS: SQUAMOUS EPITHELIAL CELL URINE 0-5 /hpf (0-5); WHITE BLOOD CELL CLUMPS OCC
--- NOTE | 2017-07-25 07:15 | PD ---
Physical Exam Narrative Patient was seen by ED physician and signed out to me. Data Data Last Documented VS Vital Signs Date Time Temp Pulse Resp B/P (MAP) Pulse Ox O2 Delivery O2 Flow Rate FiO2 07/25/17 06:21 97.9 75 18 132/63 (86) 97 Orders Orders Urinalysis - C+S If Indicated (07/25/17 06:38) Urine Culture (07/25/17 06:25) Labs Laboratory Tests Test 07/25/17 06:25 Urine Collection Type CLEAN CATCH Urine Color RED Urine Turbidity MARKED Urine pH 7.0 Urine Specific [place] 1.016 Urine Protein 300 OR GREATER mg/dL Urine Glucose (UA) NEG mg/dL Urine Ketones TRACE mg/dL Urine Occult Blood LARGE Urine Nitrite POS Urine Bilirubin NEG Urine Leukocyte Esterase LARGE Urine RBC INNUM /hpf Urine WBC 9-14 /hpf Urine WBC Clumps OCC Urine Squamous Epithelial Cells 0-5 /hpf Microscopic Urinalysis Comment CULTURE INDICATED Urine Collection Time 0625 MDM Supervised Visit with SUNITA: No Narrative Course Patient was seen by ED physician and signed out to me. Diagnosis Primary Impression: Hemorrhagic cystitis Patient Instructions: General Instructions Additional Instruction: Medication as directed. Follow-up with your urologist for cystoscopy on as planned. Return if symptoms worsen or progress. Please provide the patient a copy of her UA results at discharge. Scripts Sulfamethoxazole-Trimethoprim (Bactrim DS) 800-160 Mg Tab 1 TAB PO BID for Infection, #14 TAB 0 Refills Prov: Checo Darby MD 07/25/17 Disposition: 01 DISCHARGE HOME Condition: Stable Klever Patricia MD Jul 25, 2017 07:15
== END 2017-07-25 07:24 | disposition home or self-care (01) ==
LOC: PHED 06:16
DX: N30.91 Cystitis, unspecified with hematuria (principal); B96.89 Other specified bacterial agents as the cause of diseases classified elsewhere; Z79.82 Long term (current) use of aspirin; Z88.8 Allergy status to other drugs, medicaments and biological substances
CPT/HCPCS: 81001; 87077; 87086; 87186; 99283